=== PATIENT | male | born 1975 | race Caucasian/White ===

== ENCOUNTER → 2016-10-26 | Outpatient (CLI) | payer OTHER ==
[~2016-10-26] MED LIST: ASPIRIN CHEWABL81 MG PO; ASPIRIN EC81 MG PO; BACTROBAN NASAL1 G1; FLEXERIL 10 MG10 MG PO; HIBICLENS120 ML TOP; LOPRESSOR50 MG PO; MIRALAX510 GM PO; NEURONTIN600 MG PO; NORVASC 5 MG TAB5 MG PO; PROTONIX40 MG PO; TYLENOL W/CODEIN1 E1 PO; VITAMIN D250000 UNIT PO; ZANTAC150 MG PO; ZOCOR20 MG PO; ZYLOPRIM300 MG PO; ZYVOX600 MG PO
== END ==
LOC: KOH-I 11:12
DX: M54.5 Low back pain (principal); M47.816 Spondylosis without myelopathy or radiculopathy, lumbar region
CPT/HCPCS: 72110

== ENCOUNTER → 2016-11-10 | Outpatient (CLI) | payer OTHER | LOC: EMI 08:15 | DX: M54.5 Low back pain (principal); M51.36 Other intervertebral disc degeneration, lumbar region; M48.07 Spinal stenosis, lumbosacral region | CPT/HCPCS: 72148 ==